=== PATIENT | female | born 1965 | race Caucasian/White ===

== ENCOUNTER → 2017-05-26 | Outpatient (CLI) | payer OTHER ==
--- NOTE | 2017-05-26 17:12 | PCVCIMAG ---
APPROVED REPORT Exam: Stress Echocardiogram Indication: Hypertension Patient Location: Echo lab Stress Nurse: Coretta Sandra RN Status: routine Ht: 5 ft 4 in HR: 81 bpm BP: 120/80 mmHg Rhythm: NSR Procedure The patient underwent an Exercise Stress Test using the Isaiah Protocol. Blood pressure, heart rate, and EKG were monitored. An Echocardiogram was performed by multi care technician in four stages in quad fashion. At peak stress, four selected images were obtained and placed side by side with resting images for comparison. Stress Test Details Stress Test: Exercise stress testing was performed using a Isaiah protocol. HR Resting HR: 81 bpmMax Heart Rate (APMHR): 167 bpm Max HR Achieved: 179 bpmTarget HR (85% APMHR): 141 bpm % of APMHR: 107 HR response to stress: Normal HR response to stress BP Resting BP: 120/80 mmHg Max BP: 180/80 mmHg ECG Resting ECG: Sinus Rhythm Stress ECG: Sinus Rhythm Clinical Reason for Termination: Maximal effort Exercise duration: 11 min sec Highest Stage Achieved: Stage 4: 4.2 mph at 16% grade. Exercise capacity: 13.70 METs Overall Exercise Capacity for Age: Good Pre-Stress Echo The resting Echocardiogram showed normal left ventricular contractility with an estimated Ejection Fraction of about 55-60%. Normal wall motion in all segments on baseline images. Post-Stress Echo Normal augmentation of wall motion in all segments on post stress images. Clinical No clinical or ECG evidence for ischemia. Conclusion Clinical Response: Non-ischemic Exercise Capacity: Average Stress ECG Response: Non-ischemic Stress Echo Images: Non-ischemic The left ventricle is normal in size and wall thickness in both the rest and stress images. Other Information Study Quality: Good <Conclusion> The left ventricle is normal in size and wall thickness in both the rest and stress images.
== END | disposition home or self-care (01) ==
LOC: PCVCIMAG 15:24
PROVIDERS: ATTEND Internal Medicine Cardiovascular Disease
DX: I25.9 Chronic ischemic heart disease, unspecified (principal); I11.9 Hypertensive heart disease without heart failure; E78.5 Hyperlipidemia, unspecified; R07.9 Chest pain, unspecified
CPT/HCPCS: 93325; 93351